=== PATIENT | female | born 1940 | race Caucasian/White ===

== ENCOUNTER 2018-04-16 10:38 | Inpatient (IN) ==
[2018-04-16] MEDS ORDERED: CeFAZolin Syr 2,000MG/20 ML 2,000 MG/20 ML SYRINGE IVPB ONE (11:02)
[2018-04-16] MEDS ORDERED: Ethanol\\Acetic Acid\\Na Ace\\Ben 1,000 ML IRRIG.SOLN IR ONE (11:08)
--- NOTE | 2018-04-16 11:11 | History & Physical Report ---
Date of Encounter: 04/16/18 Time of Encounter: 11:11 24 Hour HP Update - Instructions Instructions: If the History and Physical is less than 30 days old and was completed prior to A.M. admission and or procedure and has NOT been updated on calendar day of procedure please complete this update prior to performing procedure. - Update Patient reports changes in Medical Condition: No Changes in examination, assessment, or condition: No Changes in Medication: No Preop tests/diagnostics Reviewed: Yes Surgery Remains Indicated: Yes Consent for Planned Operative Procedure(s) Verified: Yes - Pre-Operative Checklist Preoperative Checklist Indicated: No Prophylactic Antibiotic Ordered: Yes Is VTE Prophylaxis Indicated?: Yes
[2018-04-16] MEDS ORDERED: Ringers Solution, Lactated 1,000 ML IVC SCH (11:15)
--- NOTE | 2018-04-16 11:52 | Anesthesia Evaluation PreOp ---
Date of Encounter: 04/16/18 Time of Encounter: 11:50 - Past History Planned Operation: L total hip arthroplasty robotic Cardiac History: HTN, Hyperlipidemia, Cardiac Surgery (s/p CABG 2000), Other ( mitral valve prolapse) Pulmonary History: Denies Any Significant HX GEOSPATIAL SYSTEMS INTEGRATOR History: Denies Any Significant HX Other Medical History: Denies Any Significant HX Anesthesia History: No Prior Anesthetic Complications, Past Anesthesia (bladder , R hip) Alcohol Use: none Drug use: none Medications and Allergies Aspirin [Adult Aspirin] 81 mg PO DAILY 06/15/15 [History] Lisinopril [Zestril] 20 mg PO DAILY 06/15/15 [History] Loratadine [Claritin] 10 mg PO DAILY #30 tablet 06/15/15 [Rx] Ranitidine HCl [Heartburn Relief] 150 mg PO DAILY 06/15/15 [History] Aspirin Enteric Coated [Aspirin EC] 162 mg PO BID #20 tablet. 04/16/18 [Rx] Lutein 6 mg PO DAILY 04/16/18 [History] OxyCODONE Immed Rel [Roxicodone 5 MG] 5 mg PO Q4HR PRN 5 Days #20 tablet [Rx] Simvastatin [Zocor] 40 mg PO HS 04/16/18 [History] amLODIPine [Norvasc] 5 mg PO DAILY 04/16/18 [History] 3 Allergy/AdvReac Type Severity Reaction Status Date / Time Latex, Natural Rubber Allergy Hives Verified 06/15/15 19:37 Sulfa (Sulfonamide Allergy Hives Verified 06/15/15 19:37 Antibiotics) - Meds/Allergy Pre-op Review Medications Reviewed: Yes Allergies Reviewed: Yes Beta Blockers on Current Med List: Yes If Beta Blockers taken, Date/Time (Last Dose taken): 04/15/18 Anesthesia Results - Labs Laboratory Tests 04/13/18 04/13/18 04/13/18 13:38 13:38 13:38 WBC 7.8 Hgb 14.1 Hct 40.4 Plt Count 268 PT 11.4 INR 1.0 Sodium 133 L Potassium 3.9 Chloride 96 L Carbon Dioxide 26 BUN 20 Creatinine 0.83 Glucose 96 - Imaging EKG: report reviewed (SR with first degree AV block) Anesthesia Exam O2 Sat Height 1.65 m Height 1.65 m Height 1.65 m Height 1.65 m Weight 65.771 kg Weight 65.771 kg Weight 65.771 kg Weight 64.864 kg O2 Sat by Pulse Oximetry 98 Vital Signs Temp Pulse Resp BP Pulse Ox 98.4 F 68 18 133/77 98 04/16/18 11:13 04/16/18 11:13 04/16/18 11:13 04/16/18 11:13 04/16/18 11:13 Height: 65" Weight: 145lbs NPO (# of Hours): >8 Pain Scale: 0 Pain Scale Used: Numeric (1 - 10) - HEENT Pupil (Motor): Pupils equal, EOMI Mallampati: II Oral Opening: Greater than 3 - GEOSPATIAL SYSTEMS INTEGRATOR LOC: Oriented GEOSPATIAL SYSTEMS INTEGRATOR Motor: Normal RUE, Normal LUE, Normal RLE, Normal LLE, Normal Face GEOSPATIAL SYSTEMS INTEGRATOR Sensory: Normal: RUE, LUE, RLE, LLE, Face - Cardiac Rhythm: Regular - Pulmonary Breath Sounds: bilateral Clear Respiratory Effort: Symmetrical Anesthesia Assess/Plan ASA Score: 3 (CAD s/p CABG, HTN) Modified [place] Scale for Level of Consciousness: Cooperative, oriented, and tranquil Anesthetic Plan: General (Plan B), Regional (spinal with duramorph), MAC Monitoring Plan: Standard Monitors Recovery Plan: PACU
[2018-04-16] MEDS ORDERED: Lidocaine -MPF 2% 5 ML VIAL ONE (12:13)
--- NOTE | 2018-04-16 13:17 | Anesthesia Procedures ---
Date of Encounter: 04/16/18 Time of Encounter: 13:05 Procedures: Anesthesia - Epidural/Spinal Patient ID/Chart reviewed: Yes Patient examined: Yes Consent Obtained: Yes Supplemental Oxygen: Nasal Cannula Supplemental Oxygen Rate (L/min): 2 Sedation: Versed (mg): 1 Sedation: Fentanyl (mcg): 50 Site Prep: Aseptic Technique, Sterile prep and drape, Povidone-Iodine 1% Patient position: upright Local Anesthetic: Lidocaine 1% Amount of Local Anesthetic used: 3 Interspace Used: L3-L4 Blood: No CSF: Yes Paresthesia: No Spinal Needle Gauge: 25 Spinal Dose: 3ml 0.5% bupi and 0.2mf pf morphine Procedure: r/b/a discussed, consent obtained, sitting position, sterile prep and drape, 3ml 1% lido infiltrated at L3-4, 2g introducer, 25g talia, csf clear, injected 3ml 0.5% bupi with 0.2mgPF duramorph intrathecally. Pt tolerated procedure. - Nerve Block Procedure Date: 04/16/18 Time: 13:05 Allergies/Adv Reactions: Allergies Allergy/AdvReac Type Severity Reaction Status Date / Time Latex, Natural Rubber Allergy Hives Verified 06/15/15 19:37 Sulfa (Sulfonamide Allergy Hives Verified 06/15/15 19:37 Antibiotics) Surgical Procedure: L hip arthroplasty
[2018-04-16] MEDS ORDERED: *HR* Midazolam HCl 2 MG/2 ML VIAL ONE (13:58)
[2018-04-16] MEDS ORDERED: EPHEDrine 50 MG/ML VIAL ONE (13:58)
[2018-04-16] MEDS ORDERED: *HR* FentaNYL (PF) 100 MCG/2 ML VIAL ONE (13:58)
[2018-04-16] MEDS ORDERED: *HR* Propofol 200 MG/20 ML VIAL IVP ONE ×2 (13:58)
[2018-04-16] MEDS ORDERED: *HR* OxyCODONE Immed Rel 5 MG TABLET PO PRN (14:59)
[2018-04-16] MEDS ORDERED: *HR* HYDROmorphone 2 MG TABLET PO PRN (14:59)
[2018-04-16] MEDS ORDERED: Ondansetron 4 MG/2 ML VIAL IVP PRN (14:59)
--- NOTE | 2018-04-16 15:18 | Anesthesia Evaluation Post Op ---
Date of Encounter: 04/16/18 Time of Encounter: 15:17 - Vital Signs Vital Signs: Vital Signs/O2 Sat, Most Current Temp Pulse Resp BP Pulse Ox 97.7 F 76 13 110/55 98 04/16/18 14:53 04/16/18 15:03 04/16/18 15:03 04/16/18 15:03 04/16/18 15:03 - Lungs Lungs: Clear Ascult./Percussion - Airway Airway: Non-obstructed - Cardiovascular Regular Rate - Mental Status Mental Status: Alert & Oriented, Answers Appropriately - Pain Pain Scale: 0 Pain Scale used: Numeric (1 - 10) - Nausea Vomiting Nausea Vomiting: Not Present - Hydration Hydration: Ice chips, Has not voided - Discharge PostOp Status: Transfer Patient to floor
--- NOTE | 2018-04-16 15:31 | Orthopedic Operative Note ---
Date of procedure: 04/16/18 Pre-op diagnosis: Left arthritis hip Post-op diagnosis: same Procedure: Procedure: Left Total Hip Replacment robotic-assisted Estimated blood loss: 200 cc Hardware: Metal and polyethylene replacement. Dawit DM Cup: 52 cup Femoral size 8 stem Head: 8 head with Vale Procedural Notes: Grade 4 arthritic changes femoral head acetabular socket, procedure performed with robotic assistance. 4 mm shorter operative versus nonoperative side as measured by preoperative CT scan Operative procedure: The patient was brought to the operating room and placed on the operating room table. After general anesthesia was administered the patient was placed in the lateral decubitus position with the operative leg up. All pressure points were padded appropriately and the head was stabilized in the neutral position. The operative extremity was prepped and draped in the sterile surgical fashion patient received IV antibiotic prior to skin incision. 3 Steinmann pins were placed in the iliac crest 3 cm proximal to the anterior superior iliac spine this was for the robotic-assisted sensor. This was done through a small 2 cm incision. A standard posterior approach is made to the operative hip, the incision was made through the skin and subcutaneous tissue hemostasis was obtained with Bovie cautery. Using careful sharp dissection the fascia was identified and incised exposing the external rotators. The femoral checkpoint was placed leg length was measured at this time utilizing robotic assistance. The external rotators were released off the greater trochanter and tagged with # 2 FiberWire suture. The capsule was T'd open and the hip was brought into internal rotation. Patient noted to have grade 4 arthritic changes femoral head. The femoral neck cut was made at the appropriate level roughly 16 mm proximal to the lesser trochanter aced on preoperative templating. An anterior capsulotomy was performed for the anterior retractor. Soft tissues removed from the acetabulum. Patient noted to have grade 4 arthritic changes acetabulum. The acetabulum checkpoint was placed confirmed. The acetabulum was then mapped with robotic assistance. Based on the preoperative plan the acetabulum was reamed in one step with a 51 reamer. The 52 acetabulum was impacted with robotic assistance and 40 degrees of abduction and 20 degrees of anteversion. The hip was brought back in to internal rotation and prepared with the drink box mechanic followed by the canal finder followed by the reaming process to a size 7/ 8 broaching process in 20 degrees anteversion. It was broached up to the appropriate size 8. Trial reduction revealed leg lengths close to normal. The femoral implant was impacted in place in 20 degrees of anteversion. Trial reduction found the hip to be stable with 8 head and Vale. The trials were removed and the real implants were impacted in place. The hip was reduced, patient had robotic confirmed leg length of 5mm longer than the contralateral side. The hip had excellent stability with forward flexion to 90 degrees adduction of 30 degrees and internal rotation of 60 degrees. The hip had no shuck. The hips after 2 minutes with a antibacterial solution. It was irrigated out with 2 L of pulse irrigation. The checkpoints were removed, Steinmann pins were removed. The deep tissue was irrigated and closed deep with #1 PDS suture superficially with 0 PDS suture and skin was closed with Dermabond and zip tie. The patient was placed in a sterile dressing and abduction pillow. The patient was extubated and transferred to the recovery room in stable condition. Anesthesia: spinal Surgeon: Mustapha Olivares Was there an legal executive assistant present: No Estimated blood loss (cc): 200 Condition: stable Disposition: PACU
--- NOTE | 2018-04-16 15:39 | Discharge Summary ---
Orders not resulted at time of discharge: Pending orders 04/16/18 10:42 Left Hip [XR hip complete LT] [XR] Routine Hemoglobin and Hematocrit [HEME] Stat 04/16/18 14:40 Surgical Pathology [PTH] Routine Date of Encounter: 04/19/18 Time of Encounter: 06:45 - Discharge Diagnosis (1) Arthritis of left hip Priority: Primary Status: Chronic (2) Status post total hip replacement, left Priority: Primary Status: Acute (3) Hypertension Priority: Secondary Status: Chronic Qualifiers: Hypertension type: unspecified Qualified Code(s): I10 - Essential (primary ) hypertension (4) Hyperlipidemia Priority: Secondary Status: Chronic Qualifiers: Hyperlipidemia type: unspecified Qualified Code(s): E78.5 - Hyperlipidemia , unspecified (5) Coronary artery disease Priority: Secondary Status: Chronic Qualifiers: Coronary Disease-Associated Artery/Lesion type: [place] artery [place] vs. transplanted heart: [place] heart Associated angina: angina presence unspecified Qualified Code(s): I25.10 - Atherosclerotic heart disease of [place] coronary artery without angina pectoris (6) Status post coronary artery bypass graft Priority: Secondary Status: Chronic (7) Mitral valve prolapse Priority: Secondary Status: Chronic - Hospital Course Hospital course: Ms. Tamayo is a 77 year old female Status post left total hip replacement Patient with a history of acute blood loss anemia received 2 units prior to discharge, They received antibiotics and physical therapy and were discharged in stable condition. There will follow-up in the office in 2 weeks. - Time Spent with Patient Total time spent providing and/or coordinating discharge services: - Discharge Medications Home Medications: Aspirin [Adult Aspirin] 81 mg PO DAILY 06/15/15 [History] Lisinopril [Zestril] 20 mg PO DAILY 06/15/15 [History] Ranitidine HCl [Heartburn Relief] 150 mg PO DAILY 06/15/15 [History] Aspirin Enteric Coated [Aspirin EC] 162 mg PO BID #20 tablet. 04/16/18 [Rx] Lutein 6 mg PO DAILY 04/16/18 [History] OxyCODONE Immed Rel [Roxicodone 5 MG] 5 mg PO Q4HR PRN 5 Days #20 tablet [Rx] Simvastatin [Zocor] 40 mg PO HS 04/16/18 [History] amLODIPine [Norvasc] 5 mg PO DAILY 04/16/18 [History] Cholecalciferol (D-3) [Vitamin D] 5,000 unit PO FR 04/17/18 [History] Loratadine [Allergy Relief] 10 mg PO DAILY 04/17/18 [History] Metoprolol Succinate [Toprol Xl] 12.5 mg PO DAILY 04/17/18 [History] Naproxen Sodium [Aleve] 220 mg PO Q12H PRN 04/17/18 [History] [place]-3/Dha/Epa/Fish Oil [Fish Oil 1,000 mg Softgel] 3 cap PO DAILY 04/17/18 [ History] Triamcinolone Acetonide [Nasacort] 1 - 2 spr NS DAILY PRN 04/17/18 [History] Allergies/Adverse Reactions: 3 Allergy/AdvReac Type Severity Reaction Status Date / Time Latex, Natural Rubber Allergy Hives Verified 04/17/18 13:11 Sulfa (Sulfonamide Allergy Hives Verified 04/17/18 13:11 Antibiotics) Primary care physician: Gabrielle Miller MD - Patient Status Disposition: Home Health Service Condition: Good Functional capacity at discharge: uses cane/walker Overall status at discharge: patient is progressing back to baseline - Discharge Instructions Follow Up With: Gabrielle Miller MD [Primary Care Provider] -
[2018-04-16] MEDS ORDERED: Sennosides 8.6 MG TABLET PO PRN (15:50)
[2018-04-16] MEDS ORDERED: Temazepam 15 MG CAPSULE PO PRN (15:50)
[2018-04-16] MEDS ORDERED: *HR* OxyCODONE/APAP 5/325 TABLET PO PRN (15:50)
[2018-04-16] MEDS ORDERED: traMADol 50 MG TABLET PO PRN (15:50)
[2018-04-16] MEDS ORDERED: Naloxone 0.4 MG/ML INJ IVP PRN (15:50)
[2018-04-16] MEDS ORDERED: MOM Conc 10 ML UD.LIQ PO PRN (15:50)
[2018-04-16 15:56] LABS: Hematocrit 34.4 % (35.3-44.9)
[2018-04-16 16:04] LABS: Hemoglobin 12.4 g/dL (11.5-15.4)
--- NOTE | 2018-04-16 16:37 | Physician Discharge Referral ---
Home Health/Hosp Referral Info Transfer to: Home Health Attending Provider: Dr. Mustapha Olivares - Diagnosis (1) Arthritis of left hip Priority: Primary Status: Chronic (2) Status post total hip replacement, left Priority: Primary Status: Acute (3) Hypertension Priority: Secondary Status: Chronic (4) Hyperlipidemia Priority: Secondary Status: Chronic (5) Coronary artery disease Priority: Secondary Status: Chronic (6) Status post coronary artery bypass graft Priority: Secondary Status: Chronic (7) Mitral valve prolapse Priority: Secondary Status: Chronic - Respiratory Orders Smoking Cessation: Smoking cessation has been advised. For more information, call the [place] Tobacco Quit Line at 6-523-KHVI-NOW. - Dressing/Wound Care Site: left hip Type of Dressing/Treatments w/Frequency: Opsite placed. Keep dressing intact until first follow up appointment. If greater than 50% saturated, notify office, remove dressing and place appropriate dressing back in place. Leave Zipline intact. Opsite dressing is water resistant, not water-proof. OK to shower, but do not get dressing wet. - Diet/Nutrition Diet/Nutrition Orders: Regular - Activity Activity Orders: Up ad aston, Ambulate, Chair, Walker Activity: List: Total Hip replacement Precautions Apply cold therapy 3-6x/day for 20 minutes at a time. Encourage ambulation throughout the day and incentive spirometer 10x/hour. Elevate affected extremity as tolerated. Brace: Wear hip abduction pillow when laying/sleeping - Services Needed Following services are medically necessary services: Nursing, Home Health Aide, Physical Therapy, Occupational Therapy - Transfer Medications Home Medications: Aspirin [Adult Aspirin] 81 mg PO DAILY 06/15/15 [History] Lisinopril [Zestril] 20 mg PO DAILY 06/15/15 [History] Loratadine [Claritin] 10 mg PO DAILY #30 tablet 06/15/15 [Rx] Ranitidine HCl [Heartburn Relief] 150 mg PO DAILY 06/15/15 [History] Aspirin Enteric Coated [Aspirin EC] 162 mg PO BID #20 tablet. 04/16/18 [Rx] Lutein 6 mg PO DAILY 04/16/18 [History] OxyCODONE Immed Rel [Roxicodone 5 MG] 5 mg PO Q4HR PRN 5 Days #20 tablet [Rx] Simvastatin [Zocor] 40 mg PO HS 04/16/18 [History] amLODIPine [Norvasc] 5 mg PO DAILY 04/16/18 [History] Allergies/Adverse Reactions: 3 Allergy/AdvReac Type Severity Reaction Status Date / Time Latex, Natural Rubber Allergy Hives Verified 06/15/15 19:37 Sulfa (Sulfonamide Allergy Hives Verified 06/15/15 19:37 Antibiotics) Certification: Further, I certify that my clinical findings support that this patient is homebound (i.e. absences from home require considerable and taxing effort and are for medical reasons or oriental orthodox services or infrequently or short duration when for other reasons) because: Homebound Reason: Post-surgery restriction and or conditions limit ability to leave home Attestation: My signature below is to certify that this patient is under my care and that I, or nurse practitioner, or a physician web marketing assistant working with me, has a face-to- face encounter with this patient.
[2018-04-16] MEDS: Ringers Solution, Lactated 1,000 ML IVC SCH (16:45)
[2018-04-16] MEDS ORDERED: *HR* Enoxaparin 30 MG/0.3 ML SYRINGE SQ SCH (18:00)
[2018-04-16] MEDS: Ascorbic Acid 500 MG TABLET PO SCH (19:14)
[2018-04-16] MEDS: Ondansetron 4 MG/2 ML VIAL IVP PRN (19:15)
[2018-04-16] MEDS: *HR* Enoxaparin 30 MG/0.3 ML SYRINGE SQ SCH (19:15)
[2018-04-16] MEDS: *HR* OxyCODONE Immed Rel 5 MG TABLET PO PRN (21:02)
[2018-04-17] MEDS: *HR* OxyCODONE Immed Rel 5 MG TABLET PO PRN ×5 (02:09→21:41)
[2018-04-17 02:26] LABS: Hematocrit 30.9 % (35.3-44.9)
[2018-04-17 02:43] LABS: BUN/Creatinine Ratio 21 (6-26); Blood Urea Nitrogen 15 mg/dL (8-23); Calcium 8.6 mg/dL (8.6-10.3); Carbon Dioxide 24 mEq/L (23-29); Chloride 102 mEq/L (98-107); Glucose 143 mg/dL (70-105); Osmolality,Calculated 277 (280-300); Potassium 4.3 mEq/L (3.5-5.1); Sodium 132 mEq/L (136-145); eGFR For African Americans > 60 (> 60); eGFR For Non-African Americans > 60 (> 60)
[2018-04-17] MEDS: *HR* Enoxaparin 30 MG/0.3 ML SYRINGE SQ SCH ×2 (05:19→17:03)
[2018-04-17] MEDS: Aspirin Enteric Coated 81 MG Tablet PO SCH (08:29)
[2018-04-17] MEDS: Famotidine 20 MG TABLET PO SCH (08:29)
[2018-04-17] MEDS: Loratadine 10 MG TABLET PO SCH (08:30)
[2018-04-17] MEDS: Ascorbic Acid 500 MG TABLET PO SCH ×2 (08:30→17:03)
[2018-04-17] MEDS: Multivit/Ca/Min/Fe/FA 1 TAB TABLET PO SCH (08:30)
[2018-04-17] MEDS: Lisinopril 20 MG TABLET PO SCH (08:48)
[2018-04-17] MEDS: amLODIPine 5 MG TABLET PO SCH (08:48)
--- NOTE | 2018-04-17 15:43 | Orthopedics Progress Note ---
Date of Encounter: 04/17/18 Time of Encounter: 15:41 Subjective Principal diagnosis: Status post left total hip arthroplasty Interval history: Patient complaining of pain She had 10 mg of oxycodone around 1 PM Left hip dressings are clean dry intact Bilateral calves are soft and nontender Grossly varus intact distally A/ postop day #1, stable with pain P/ continue OT/PT Continue DVT prophylaxis Pain control Home therapy referral made Objective Vital signs: Vital Signs Temp Pulse Resp BP Pulse Ox 04/17/18 10:22 98.4 F 93 16 101/54 98 04/17/18 06:42 98.2 F 87 16 98/57 96 04/17/18 03:53 98.0 F 84 16 94/60 94 04/16/18 23:19 98.5 F 96 16 95/64 96 04/16/18 19:20 97.7 F 87 14 109/64 100 04/16/18 18:29 98.8 F 86 16 100/59 96 04/16/18 18:17 97.9 F 86 16 96/63 96 04/16/18 17:42 97.8 F 83 16 97/56 95 Intake and Output 04/16/18 04/17/18 04/17/18 23:59 07:59 15:59 Intake Total 100 / 100 400 / 400 400 / 400 Output Total 350 / 350 Balance 100 / 100 400 / 400 50 / 50 Intake: IV Fluids 100 / 100 Ancef 2,000 MG In 0.9 % Sodium 100 / 100 Chloride 100 ML @ 200 mls/hr IVPB Q8H [facility] Rx#:[id number] Oral 400 / 400 400 / 400 Output: Urine 350 / 350 Other: Meal Breakfast Percent of Meal Consumed 60% # Voids 1 1 - Labs CBC & BMP: 04/17/18 00:54 04/17/18 00:54 Labs: Abnormal lab results Hgb 11.0 g/dL (11.5-15.4) L 04/17/18 00:54 Hct 30.9 % (35.3-44.9) L 04/17/18 00:54 Sodium 132 mEq/L (136-145) L 04/17/18 00:54 Glucose 143 mg/dL (70-105) H 04/17/18 00:54 Calculated Osmolality 277 (280-300) L 04/17/18 00:54 - VTE Documentation of Mechanical Device: Venous foot pump, device Consult Discharge Plan - Plan Referrals: Gabrielle Miller MD [Primary Care Provider] -
[2018-04-17] MEDS: Ringers Solution, Lactated 1,000 ML IVC SCH ×2 (19:20→19:21)
[2018-04-17] MEDS: Ondansetron 4 MG/2 ML VIAL IVP PRN (21:10)
[2018-04-18 01:04] LABS: Hematocrit 24.5 % (35.3-44.9)
[2018-04-18 01:06] LABS: Hemoglobin 8.8 g/dL (11.5-15.4)
[2018-04-18 01:24] LABS: BUN/Creatinine Ratio 23 (6-26); Blood Urea Nitrogen 19 mg/dL (8-23); Calcium 8.4 mg/dL (8.6-10.3); Carbon Dioxide 22 mEq/L (23-29); Chloride 93 mEq/L (98-107); Glucose 139 mg/dL (70-105); Osmolality,Calculated 259 (280-300); Potassium 4.8 mEq/L (3.5-5.1); Sodium 122 mEq/L (136-145); eGFR For African Americans > 60 (> 60); eGFR For Non-African Americans > 60 (> 60)
[2018-04-18] MEDS: *HR* OxyCODONE Immed Rel 5 MG TABLET PO PRN ×3 (03:02→19:26)
[2018-04-18] MEDS: *HR* Enoxaparin 30 MG/0.3 ML SYRINGE SQ SCH ×2 (05:54→17:00)
[2018-04-18] MEDS: Ringers Solution, Lactated 1,000 ML IVC SCH (07:13)
[2018-04-18] MEDS ORDERED: Furosemide 20 MG/2 ML VIAL IVP ONE (07:19)
[2018-04-18] MEDS ORDERED: 0.9 % Sodium Chloride 250 ML IVC SCH (07:30)
[2018-04-18] MEDS: Famotidine 20 MG TABLET PO SCH (07:38)
[2018-04-18] MEDS: Aspirin Enteric Coated 81 MG Tablet PO SCH (07:38)
[2018-04-18] MEDS: Multivit/Ca/Min/Fe/FA 1 TAB TABLET PO SCH (07:38)
[2018-04-18] MEDS: Ascorbic Acid 500 MG TABLET PO SCH ×2 (07:39→17:00)
[2018-04-18] MEDS: amLODIPine 5 MG TABLET PO SCH (07:39)
[2018-04-18] MEDS: Lisinopril 20 MG TABLET PO SCH (07:39)
[2018-04-18] MEDS: Loratadine 10 MG TABLET PO SCH (07:39)
[2018-04-18] MEDS: Ondansetron 4 MG/2 ML VIAL IVP PRN ×2 (09:11→19:26)
--- NOTE | 2018-04-18 15:15 | Orthopedics Progress Note ---
Date of Encounter: 04/18/18 Time of Encounter: 15:13 Subjective Principal diagnosis: Status post left total hip arthroplasty Interval history: Patient complaining of pain Patient states she threw up after Oxycodone this morning. She received one unit of packed red blood cells this am Left hip dressings are clean dry intact Bilateral calves are soft and nontender Grossly varus intact distally A/ postop day #2, stable with pain P/ continue OT/PT Continue DVT prophylaxis Pain control - patient also has Ultram as well as an alternative Check H&H tomorrow Home therapy referral made Objective Vital signs: Vital Signs Temp Pulse Resp BP Pulse Ox 04/18/18 13:02 98.1 F 93 15 109/58 98 04/18/18 10:51 98.1 F 83 14 95/47 96 04/18/18 10:36 98.1 F 88 14 97/61 98 04/18/18 07:53 94 04/18/18 06:54 99.2 F 98 20 108/50 94 04/18/18 02:42 98.8 F 91 16 101/57 94 04/17/18 22:36 98.4 F 88 16 103/61 93 04/17/18 17:42 98.5 F 101 16 100/62 98 Intake and Output 04/17/18 04/18/18 04/18/18 23:59 07:59 15:59 Intake Total 2800 / 2800 0 / 0 994 / 994 Output Total 200 / 200 300 / 300 300 / 300 Balance 2600 / 2600 -300 / -300 694 / 694 Intake: IV Fluids 900 / 900 25 / 25 0.9 % Sodium Chloride 250 ML @ 25 / 25 25 mls/hr IVC .Q10H [facility] Rx#: [id number] Lactated Ringers 1,000 ML @ 75 900 / 900 mls/hr IVC .[id number] [facility] Rx#: [id number] Oral 1000 / 1000 0 / 0 690 / 690 Blood Product 279 / 279 Rbcs Leuko Poor As-1 Unit 279 / 279 [id number] Free Water 900 / 900 Output: Urine 200 / 200 300 / 300 300 / 300 Other: Meal Dinner Breakfast Percent of Meal Consumed 25% 40% # Voids 1 1 - Labs CBC & BMP: 04/18/18 00:27 04/18/18 00:27 Labs: Abnormal lab results Hgb 8.8 g/dL (11.5-15.4) L D 04/18/18 00:27 Hct 24.5 % (35.3-44.9) L 04/18/18 00:27 Sodium 122 mEq/L (136-145) L D 04/18/18 00:27 Chloride 93 mEq/L (98-107) L 04/18/18 00:27 Carbon Dioxide 22 mEq/L (23-29) L 04/18/18 00:27 Glucose 139 mg/dL (70-105) H 04/18/18 00:27 Calculated Osmolality 259 (280-300) L 04/18/18 00:27 Calcium 8.4 mg/dL (8.6-10.3) L 04/18/18 00:27 - VTE Documentation of Mechanical Device: Intermittent pneumatic compression device Consult Discharge Plan - Plan Referrals: Gabrielle Miller MD [Primary Care Provider] -
[2018-04-19 00:33] LABS: Hematocrit 22.4 % (35.3-44.9); Hemoglobin 8.3 g/dL (11.5-15.4)
[2018-04-19] MEDS: *HR* OxyCODONE Immed Rel 5 MG TABLET PO PRN ×4 (02:44→21:29)
[2018-04-19] MEDS: *HR* Enoxaparin 30 MG/0.3 ML SYRINGE SQ SCH ×2 (06:07→17:19)
--- NOTE | 2018-04-19 06:46 | Orthopedics Progress Note ---
Date of Encounter: 04/19/18 Time of Encounter: 06:46 - Assessment and Plan (1) Arthritis of left hip Current Visit: Yes Status: Chronic (2) Status post total hip replacement, left Current Visit: Yes Status: Acute (3) Hypertension Current Visit: Yes Status: Chronic Qualifiers: Hypertension type: unspecified Qualified Code(s): I10 - Essential (primary ) hypertension (4) Hyperlipidemia Current Visit: Yes Status: Chronic Qualifiers: Hyperlipidemia type: unspecified Qualified Code(s): E78.5 - Hyperlipidemia , unspecified (5) Coronary artery disease Current Visit: Yes Status: Chronic Qualifiers: Coronary Disease-Associated Artery/Lesion type: [place] artery [place] vs. transplanted heart: [place] heart Associated angina: angina presence unspecified Qualified Code(s): I25.10 - Atherosclerotic heart disease of [place] coronary artery without angina pectoris (6) Status post coronary artery bypass graft Current Visit: Yes Status: Chronic (7) Mitral valve prolapse Current Visit: Yes Status: Chronic Subjective Principal diagnosis: Status post left total hip arthroplasty Interval history: Patient was seen this morning doing well without complaints. Afebrile vital signs stable. Operative extremity: Neurovascularly intact Dressing clean dry and intact Calves nontender Assessment and plan: Continue with postoperative care Hemoglobin 8.3 transfuse 1 more unit been discharged today Objective Vital signs: Vital Signs Temp Pulse Resp BP Pulse Ox 04/19/18 06:28 98.5 F 92 18 107/56 96 04/19/18 04:23 98.9 F 92 14 98/60 97 04/18/18 23:08 98.7 F 90 16 103/62 96 04/18/18 18:34 98.9 F 98 18 116/50 96 04/18/18 15:56 97.9 F 94 17 103/65 99 04/18/18 13:02 98.1 F 93 15 109/58 98 04/18/18 10:51 98.1 F 83 14 95/47 96 04/18/18 10:36 98.1 F 88 14 97/61 98 04/18/18 07:53 94 04/18/18 06:54 99.2 F 98 20 108/50 94 Intake and Output 04/18/18 04/18/18 04/19/18 15:59 23:59 07:59 Intake Total 994 / 994 760 / 760 100 / 100 Output Total 600 / 600 0 / 0 200 / 200 Balance 394 / 394 760 / 760 -100 / -100 Intake: IV Fluids 25 / 25 0.9 % Sodium Chloride 250 ML @ 25 / 25 25 mls/hr IVC .Q10H [facility] Rx#: [id number] Oral 690 / 690 760 / 760 100 / 100 Blood Product 279 / 279 Rbcs Leuko Poor As-1 Unit 279 / 279 [id number] Output: Urine 600 / 600 0 / 0 200 / 200 Other: Meal Breakfast Dinner Percent of Meal Consumed 40% 10% Weight 66.46 kg Patient Weight 04/19/18 23:59 Weight 66.46 kg - Labs CBC & BMP: 04/19/18 00:22 04/18/18 00:27 Labs: Abnormal lab results Hgb 8.3 g/dL (11.5-15.4) L 04/19/18 00:22 Hct 22.4 % (35.3-44.9) L 04/19/18 00:22 Sodium 122 mEq/L (136-145) L D 04/18/18 00:27 Chloride 93 mEq/L (98-107) L 04/18/18 00:27 Carbon Dioxide 22 mEq/L (23-29) L 04/18/18 00:27 Glucose 139 mg/dL (70-105) H 04/18/18 00:27 Calculated Osmolality 259 (280-300) L 04/18/18 00:27 Calcium 8.4 mg/dL (8.6-10.3) L 04/18/18 00:27 - VTE Documentation of Mechanical Device: Venous foot pump, device Consult Discharge Plan - Plan Referrals: Gabrielle Miller MD [Primary Care Provider] -
[2018-04-19] MEDS ORDERED: Furosemide 20 MG/2 ML VIAL IVP ONE (06:49)
[2018-04-19] MEDS ORDERED: 0.9 % Sodium Chloride 250 ML IVC SCH (07:00)
[2018-04-19] MEDS: Lisinopril 20 MG TABLET PO SCH (08:29)
[2018-04-19] MEDS: amLODIPine 5 MG TABLET PO SCH (08:29)
[2018-04-19] MEDS: Famotidine 20 MG TABLET PO SCH (08:48)
[2018-04-19] MEDS: Ascorbic Acid 500 MG TABLET PO SCH ×2 (08:48→17:18)
[2018-04-19] MEDS: Aspirin Enteric Coated 81 MG Tablet PO SCH (08:48)
[2018-04-19] MEDS: Multivit/Ca/Min/Fe/FA 1 TAB TABLET PO SCH (08:49)
[2018-04-19] MEDS: Loratadine 10 MG TABLET PO SCH (08:49)
[2018-04-19 10:59] LABS: BUN/Creatinine Ratio 27 (6-26); Blood Urea Nitrogen 21 mg/dL (8-23); Calcium 8.4 mg/dL (8.6-10.3); Carbon Dioxide 25 mEq/L (23-29); Chloride 90 mEq/L (98-107); Glucose 141 mg/dL (70-105); Osmolality,Calculated 255 (280-300); Potassium 4.1 mEq/L (3.5-5.1); Sodium 120 mEq/L (136-145); eGFR For African Americans > 60 (> 60); eGFR For Non-African Americans > 60 (> 60)
--- NOTE | 2018-04-19 12:38 | Event Note ---
Date of Encounter: 04/19/18 Time of Encounter: 12:00 PCR- POD# 3 L THR robot 04/16 [place] PCR - Patient seen at bedside. Patient resting comfortably in bed. Spouse at bedside. 1 unit PRBC transfusing during visit. Vitals, Labwork and Medications reviewed. Sodium 120 today - checking urine osmolality and sodium Pain control: Adequate Participating in PT. All questions and concerns addressed. Educated on use of incentive spirometer, ambulation, and hydration. Patient educated on post-operative restrictions and care. Addressed: Hyponatremia D/C plan: Home with home health after transfusion IF sodium corrects on repeat BMP
[2018-04-19] MEDS: Ondansetron 4 MG/2 ML VIAL IVP PRN (12:40)
--- NOTE | 2018-04-19 15:34 | Event Note ---
Date of Encounter: 04/19/18 Time of Encounter: 14:30 S/w patient and her two daughters re: hyponatremia. Discussed that we anticipate some correction with the unit of blood she got today however we are getting further labwork as well to verify no major issue needing to be addressed such as SIADH or other salt-wasting condition. Informed them we will need to make sure she has close follow up with PCP as well upon discharge to continue to monitor. They verbalized understanding and agreement with above stated plan.
[2018-04-19 17:45] LABS: BUN/Creatinine Ratio 28 (6-26); Blood Urea Nitrogen 19 mg/dL (8-23); Calcium 8.4 mg/dL (8.6-10.3); Carbon Dioxide 23 mEq/L (23-29); Chloride 91 mEq/L (98-107); Glucose 108 mg/dL (70-105); Osmolality,Calculated 257 (280-300); Potassium 4.8 mEq/L (3.5-5.1); Sodium 122 mEq/L (136-145); eGFR For African Americans > 60 (> 60); eGFR For Non-African Americans > 60 (> 60)
[2018-04-19 19:04] LABS: Thyroid Stimulating Hormone 1.949 mcIU/mL (0.340-5.600)
[2018-04-20 02:16] LABS: Basophils % 0.3 %; Eosinophils # 0.4 K/mcL (0.0-0.6); Eosinophils % 3.3 %; Hematocrit 23.5 % (35.3-44.9); Hemoglobin 8.6 g/dL (11.5-15.4); Immature Granulocytes % 2.1 % (0-4); Lymphocytes # 2.2 K/mcL (0.6-4.6); Lymphocytes % 19.2 %; Mean Corpuscular HGB Conc 36.6 g/dL (31.6-35.5); Mean Corpuscular Hemoglobin 32.7 pg (28.0-33.3); Mean Corpuscular Volume 89.4 fL (83.0-100.0); Mean Platelet Volume 9.6 fL (9.4-12.4); Monocytes # 1.2 K/mcL (0.0-1.3); Monocytes % 10.3 %; Neutrophils # 7.5 K/mcL (1.6-8.9); Nucleated Red Blood Cells 0.3 /100 WBC (0); Platelet Count 186 K/mcL (140-400); Red Blood Count 2.63 M/mcL (3.82-4.97); Red Cell Distribution Width 12.9 % (11.5-14.5); Segmented Neutrophils % 64.8 %
[2018-04-20 02:34] LABS: Alanine Aminotransferase 19 Units/L (7-52); Albumin 2.9 g/dL (3.5-5.7); Albumin/Globulin Ratio 1.4 (1.1-2.2); Alkaline Phosphatase 36 Units/L (34-104); Aspartate Amino Transferase 38 Units/L (13-39); BUN/Creatinine Ratio 32 (6-26); Bilirubin,Total 0.9 mg/dL (0.3-1.0); Blood Urea Nitrogen 21 mg/dL (8-23); Calcium 8.3 mg/dL (8.6-10.3); Carbon Dioxide 23 mEq/L (23-29); Chloride 91 mEq/L (98-107); Globulin 2.1 g/dL (2.4-3.5); Glucose 98 mg/dL (70-105); Osmolality,Calculated 255 (280-300); Potassium 4.4 mEq/L (3.5-5.1); Sodium 121 mEq/L (136-145); eGFR For African Americans > 60 (> 60); eGFR For Non-African Americans > 60 (> 60)
[2018-04-20] MEDS: *HR* Enoxaparin 30 MG/0.3 ML SYRINGE SQ SCH ×2 (05:16→17:38)
[2018-04-20] MEDS: *HR* OxyCODONE Immed Rel 5 MG TABLET PO PRN ×2 (05:17→17:42)
--- NOTE | 2018-04-20 06:21 | Orthopedics Progress Note ---
Date of Encounter: 04/20/18 Time of Encounter: 06:20 - Assessment and Plan (1) Arthritis of left hip Current Visit: Yes Status: Chronic (2) Status post total hip replacement, left Current Visit: Yes Status: Acute (3) Hypertension Current Visit: Yes Status: Chronic Qualifiers: Hypertension type: unspecified Qualified Code(s): I10 - Essential (primary ) hypertension (4) Hyperlipidemia Current Visit: Yes Status: Chronic Qualifiers: Hyperlipidemia type: unspecified Qualified Code(s): E78.5 - Hyperlipidemia , unspecified (5) Coronary artery disease Current Visit: Yes Status: Chronic Qualifiers: Coronary Disease-Associated Artery/Lesion type: [place] artery [place] vs. transplanted heart: [place] heart Associated angina: angina presence unspecified Qualified Code(s): I25.10 - Atherosclerotic heart disease of [place] coronary artery without angina pectoris (6) Status post coronary artery bypass graft Current Visit: Yes Status: Chronic (7) Mitral valve prolapse Current Visit: Yes Status: Chronic Subjective Principal diagnosis: Status post left total hip arthroplasty Interval history: Patient was seen this morning doing well without complaints. Afebrile vital signs stable. Operative extremity: Neurovascularly intact Dressing clean dry and intact Calves nontender Assessment and plan: Continue with postoperative care Hemoglobin 8.6 persistent hyponatremia being evaluated by medical team holding discharge Objective Vital signs: Vital Signs Temp Pulse Resp BP Pulse Ox 04/20/18 02:58 98.4 F 83 16 102/53 94 04/20/18 00:39 98.5 F 87 15 106/71 96 04/19/18 20:32 97.7 F 91 15 126/61 95 04/19/18 14:51 97.7 F 85 14 104/75 99 04/19/18 11:49 97.7 F 83 16 121/56 98 04/19/18 11:23 98.1 F 86 16 101/55 96 04/19/18 10:43 98.0 F 86 18 116/69 93 04/19/18 06:28 98.5 F 92 18 107/56 96 Intake and Output 04/19/18 04/19/18 04/20/18 15:59 23:59 07:59 Intake Total 522 / 522 100 / 100 50 / 50 Output Total 500 / 500 1800 / 1800 Balance 522 / 522 -400 / -400 -1750 / -1750 Intake: Oral 240 / 240 100 / 100 50 / 50 Blood Product 282 / 282 Rbcs Leuko Poor As-1 Unit 282 / 282 [id number] Output: Urine 500 / 500 1800 / 1800 Other: Meal Breakfast Percent of Meal Consumed 10% # Voids 2 3 Weight 66 kg - Labs CBC & BMP: 04/20/18 01:14 04/20/18 01:14 Labs: Abnormal lab results WBC 11.6 K/mcL (4.3-11.1) H 04/20/18 01:14 RBC 2.63 M/mcL (3.82-4.97) L 04/20/18 01:14 Hgb 8.6 g/dL (11.5-15.4) L 04/20/18 01:14 Hct 23.5 % (35.3-44.9) L 04/20/18 01:14 MCHC 36.6 g/dL (31.6-35.5) H 04/20/18 01:14 Nucleated RBCs/100 WBC 0.3 /100 WBC (0) H 04/20/18 01:14 Sodium 121 mEq/L (136-145) L 04/20/18 01:14 Chloride 91 mEq/L (98-107) L 04/20/18 01:14 BUN/Creatinine Ratio 32 (6-26) H 04/20/18 01:14 Calculated Osmolality 255 (280-300) L 04/20/18 01:14 Calcium 8.3 mg/dL (8.6-10.3) L 04/20/18 01:14 Serum Total Protein 5.0 g/dL (6.4-8.9) L 04/20/18 01:14 Albumin 2.9 g/dL (3.5-5.7) L 04/20/18 01:14 Globulin 2.1 g/dL (2.4-3.5) L 04/20/18 01:14 Urine Osmolality 249 mOsm/kg (300-1090) L 04/19/18 17:07 - VTE Documentation of Mechanical Device: Venous foot pump, device Consult Discharge Plan - Plan Referrals: Gabrielle Miller MD [Primary Care Provider] -
[2018-04-20] MEDS: Famotidine 20 MG TABLET PO SCH (09:36)
[2018-04-20] MEDS: Ascorbic Acid 500 MG TABLET PO SCH ×2 (09:36→17:38)
[2018-04-20] MEDS: Loratadine 10 MG TABLET PO SCH (09:36)
[2018-04-20] MEDS: amLODIPine 5 MG TABLET PO SCH (09:37)
[2018-04-20] MEDS: Multivit/Ca/Min/Fe/FA 1 TAB TABLET PO SCH (09:37)
[2018-04-20] MEDS: Aspirin Enteric Coated 81 MG Tablet PO SCH (09:37)
[2018-04-20] MEDS ORDERED: Tolvaptan 15 MG TABLET PO ONE (10:16)
--- NOTE | 2018-04-20 11:42 | Nephrology Consult Note ---
Date of Encounter: 04/20/18 Time of Encounter: 09:10 Assessment and Plan (1) Hyponatremia Current Visit: Yes Status: Acute S/p L total hip arthroplasty Euvolemic, hypochloremic hyponatremia P: Holding off on fluid restriction in setting of planned -vaptan administration Giving 15mg x1 dose Tolvaptan to help facilitate excretion of electrolyte-free water Ordering BID BMP, update to Urine sodium, Urine osm, Urine potassium for AM labs (2) Status post total hip replacement, left Current Visit: Yes Status: Acute (3) Hyperlipidemia Current Visit: Yes Status: Chronic On statin; chronic Qualifiers: Hyperlipidemia type: unspecified Qualified Code(s): E78.5 - Hyperlipidemia , unspecified (4) Hypertension Current Visit: Yes Status: Chronic Zestril; not currently on a thiazide (na+/cl- cotransporter inhibitor) chronic condition per primary Qualifiers: Hypertension type: unspecified Qualified Code(s): I10 - Essential (primary ) hypertension (5) Anemia Current Visit: Yes Status: Acute 12.4 13 down to 8.3 / s/p 1U pRBC transfusion hgb 8.6, no evidence of active bleed no hx renal disease 80-100 MCV Qualifiers: Anemia type: unspecified type Qualified Code(s): D64.9 - Anemia, unspecified History of Present Illness - Reason for Consult hyponatremia Requesting physician: Mustapha Oilvares - Chief Complaint Hyponatremia, s/p L hip arthroplasty - History of Present Illness 77F consulted for hyponatremia of 122, s/p L total hip arthroplasty. Past medical history significant for CAD s/p CABG, arthritis, HTN, HLD. Patient has received 1U pRBCs post-op for hgb 8.3 (12s baseline). She has received LRs at 75cc/hr for half a day. At the time of my evaluation patient denies seizures, concentration changes, or dysarthria. Pain is well controlled. Past Med Surg Social Fam HX - Past Medical History Medical history: coronary artery disease, hypertension, other Additional medical history: HEART PROBLEMS Psychiatric history: no psych history - Past Surgical History Surgical History: coronary bypass (CABG), other - Social History Smoking Status: Never smoker Smokeless Tobacco Status: No Alcohol use: none Drug use: none - Family History Mother Hx Family Neurologic Disorders: Yes (CVA) Medications and Allergies Aspirin [Adult Aspirin] 81 mg PO DAILY 06/15/15 [History] Lisinopril [Zestril] 20 mg PO DAILY 06/15/15 [History] Ranitidine HCl [Heartburn Relief] 150 mg PO DAILY 06/15/15 [History] Aspirin Enteric Coated [Aspirin EC] 162 mg PO BID #20 tablet. 04/16/18 [Rx] Lutein 6 mg PO DAILY 04/16/18 [History] OxyCODONE Immed Rel [Roxicodone 5 MG] 5 mg PO Q4HR PRN 5 Days #20 tablet [Rx] Simvastatin [Zocor] 40 mg PO HS 04/16/18 [History] amLODIPine [Norvasc] 5 mg PO DAILY 04/16/18 [History] Cholecalciferol (D-3) [Vitamin D] 5,000 unit PO FR 04/17/18 [History] Loratadine [Allergy Relief] 10 mg PO DAILY 04/17/18 [History] Metoprolol Succinate [Toprol Xl] 12.5 mg PO DAILY 04/17/18 [History] Naproxen Sodium [Aleve] 220 mg PO Q12H PRN 04/17/18 [History] [place]-3/Dha/Epa/Fish Oil [Fish Oil 1,000 mg Softgel] 3 cap PO DAILY 04/17/18 [ History] Triamcinolone Acetonide [Nasacort] 1 - 2 spr NS DAILY PRN 04/17/18 [History] 3 Allergy/AdvReac Type Severity Reaction Status Date / Time Latex, Natural Rubber Allergy Hives Verified 04/17/18 13:11 Sulfa (Sulfonamide Allergy Hives Verified 04/17/18 13:11 Antibiotics) Exam - Vital Signs Vital signs: Initial Vital Signs Temp Pulse Resp BP Pulse Ox 98.4 F 68 18 133/77 98 04/16/18 11:13 04/16/18 11:13 04/16/18 11:13 04/16/18 11:13 04/16/18 11:13 Vital Signs - Last 8 Hours Temp Pulse Resp BP Pulse Ox 04/20/18 07:40 98.4 F 82 16 132/76 94 Intake and Output 04/19/18 04/20/18 04/20/18 23:59 07:59 15:59 Intake Total 100 / 100 50 / 50 Output Total 500 / 500 1800 / 1800 Balance -400 / -400 -1750 / -1750 Intake: Oral 100 / 100 50 / 50 Output: Urine 500 / 500 1800 / 1800 Other: # Voids 3 Weight 66 kg - General Appearance General appearance: well-developed, well-nourished, appears started age EENT: mucous membranes moist Neck: supple Respiratory: clear Cardiology: no murmurs, no rub, no gallops, no edema, regular rate, regular rhythm, normal S1, normal S2 Integumentary: no rash, warm and dry Additional Comments: dressing intact/dry Neurologic: no focal deficit, alert and oriented x3 Musculoskeletal: no deformities, no erythema, no cyanosis, no clubbing Psychiatric: mood/affect appropriate, cooperative Results - Lab Results 04/20/18 01:14 04/20/18 01:14 Most recent lab results Calcium 8.3 mg/dL (8.6-10.3) L 04/20/18 01:14 Urine Sodium < 10.0 mEq/L 04/19/18 17:07 Consult Discharge Plan - Plan Referrals: Gabrielle Miller MD [Primary Care Provider] -
[2018-04-20 18:34] LABS: BUN/Creatinine Ratio 23 (6-26); Blood Urea Nitrogen 17 mg/dL (8-23); Calcium 8.8 mg/dL (8.6-10.3); Carbon Dioxide 25 mEq/L (23-29); Chloride 97 mEq/L (98-107); Glucose 137 mg/dL (70-105); Osmolality,Calculated 260 (280-300); Potassium 4.3 mEq/L (3.5-5.1); Sodium 123 mEq/L (136-145); eGFR For African Americans > 60 (> 60); eGFR For Non-African Americans > 60 (> 60)
--- NOTE | 2018-04-20 21:13 | Event Note ---
Date of Encounter: 04/20/18 Time of Encounter: 12:00 PCR- POD#4 s/p L THR robotic 04/16 Dr. Olivares PCR - Patient seen at bedside. daughter Lia Jiménez , patients spouse also at bedside Alert and oriented x 3 Labwork and medications reviewed. 04/20: H/H 8.6/23.5 - improved from 04/19 after 1 unit blood Hyponatremia persisting - first developed on 04/18 to 122. Decreased to 120 on 04/19. Improved to 122 then dropped again to 121 on 04/20. Nephrology consulted - they are further evaluating and treating. Vital signs reviewed. No calf tenderness. Neurovascularly intact b/l LE. Scant drainage to primary surgical incision - requested nursing to change dressing. Pain control: Adequate with Oxycodone Participating in PT. Educated on use of incentive spirometer, ambulation, and hydration. Patient educated on post-operative restrictions and care. Addressed: 04/20: Family concerns: hyponatremia cause and treatment- discussed nephrology consultation as was previously discussed with both daughters on 04/19 by this provider as a possibility if sodium did not correct with blood transfusion. Discussed patient's vital signs - family was under impression patient should be on continuous monitoring. Explained at present this was not necessary as patient has remained stable. Discussed labwork that was ordered on 04/19 with results as well as indication for ordering. Discussed that while we are very pleased with her hip recovery she has developed this unexpected medical complication that arose that makes it unsafe for her to go home until corrected which is leading to a longer than anticipated hospital stay. Patient and family verbalized all questions and concerns addressed and expressed understanding and thanks. Nurse clinical documentation manager and nurse navigator were present during this lengthy discussion. Nurse clinical documentation manager aware of family's concerns and will continue to monitor. D/C plan: Home with home health once sodium corrected.
[2018-04-21 01:37] LABS: BUN/Creatinine Ratio 24 (6-26); Blood Urea Nitrogen 16 mg/dL (8-23); Calcium 8.7 mg/dL (8.6-10.3); Carbon Dioxide 25 mEq/L (23-29); Chloride 96 mEq/L (98-107); Glucose 110 mg/dL (70-105); Osmolality,Calculated 270 (280-300); Potassium 4.1 mEq/L (3.5-5.1); Sodium 129 mEq/L (136-145); eGFR For African Americans > 60 (> 60); eGFR For Non-African Americans > 60 (> 60)
[2018-04-21] MEDS: *HR* OxyCODONE Immed Rel 5 MG TABLET PO PRN ×2 (01:58→08:34)
[2018-04-21] MEDS: *HR* Enoxaparin 30 MG/0.3 ML SYRINGE SQ SCH (05:23)
--- NOTE | 2018-04-21 06:53 | Orthopedics Progress Note ---
Date of Encounter: 04/21/18 Time of Encounter: 06:53 - Assessment and Plan (1) Arthritis of left hip Current Visit: Yes Status: Chronic (2) Status post total hip replacement, left Current Visit: Yes Status: Acute (3) Hypertension Current Visit: Yes Status: Chronic Qualifiers: Hypertension type: unspecified Qualified Code(s): I10 - Essential (primary ) hypertension (4) Hyperlipidemia Current Visit: Yes Status: Chronic Qualifiers: Hyperlipidemia type: unspecified Qualified Code(s): E78.5 - Hyperlipidemia , unspecified (5) Coronary artery disease Current Visit: Yes Status: Chronic Qualifiers: Coronary Disease-Associated Artery/Lesion type: [place] artery [place] vs. transplanted heart: [place] heart Associated angina: angina presence unspecified Qualified Code(s): I25.10 - Atherosclerotic heart disease of [place] coronary artery without angina pectoris (6) Status post coronary artery bypass graft Current Visit: Yes Status: Chronic (7) Mitral valve prolapse Current Visit: Yes Status: Chronic Subjective Principal diagnosis: Status post left total hip arthroplasty Interval history: Patient was seen this morning doing well without complaints. Afebrile vital signs stable. Operative extremity: Neurovascularly intact Dressing clean dry and intact Calves nontender Assessment and plan: Continue with postoperative care Sodium 129 plan for discharge today Objective Vital signs: Vital Signs Temp Pulse Resp BP Pulse Ox 04/21/18 00:40 98.5 F 88 15 109/64 98 04/20/18 18:55 98.2 F 98 15 102/58 98 04/20/18 15:59 98.5 F 88 16 118/56 95 04/20/18 12:30 98.8 F 98 16 133/68 96 04/20/18 07:40 98.4 F 82 16 132/76 94 Intake and Output 04/20/18 04/20/18 04/21/18 15:59 23:59 07:59 Intake Total 240 / 240 850 / 850 Output Total 800 / 800 2049 1000 / 1000 Balance -560 / -560 -1200 / -1200 -1000 / -1000 Intake: Oral 240 / 240 850 / 850 Output: Urine 800 / 800 2049 1000 / 1000 Other: Meal Breakfast Percent of Meal Consumed 10% # Voids 1 1 Weight 66.5 kg Patient Weight 04/21/18 23:59 Weight 66.5 kg - Labs CBC & BMP: 04/20/18 01:14 07/18/18 00:55 Labs: Abnormal lab results WBC 11.6 K/mcL (4.3-11.1) H 04/20/18 01:14 RBC 2.63 M/mcL (3.82-4.97) L 04/20/18 01:14 Hgb 8.6 g/dL (11.5-15.4) L 04/20/18 01:14 Hct 23.5 % (35.3-44.9) L 04/20/18 01:14 MCHC 36.6 g/dL (31.6-35.5) H 04/20/18 01:14 Nucleated RBCs/100 WBC 0.3 /100 WBC (0) H 04/20/18 01:14 Sodium 129 mEq/L (136-145) L 04/21/18 00:55 Chloride 96 mEq/L (98-107) L 04/21/18 00:55 Glucose 110 mg/dL (70-105) H 04/21/18 00:55 Calculated Osmolality 270 (280-300) L 04/21/18 00:55 Serum Total Protein 5.0 g/dL (6.4-8.9) L 04/20/18 01:14 Albumin 2.9 g/dL (3.5-5.7) L 04/20/18 01:14 Globulin 2.1 g/dL (2.4-3.5) L 04/20/18 01:14 Urine Osmolality 249 mOsm/kg (300-1090) L 04/19/18 17:07 - VTE Documentation of Mechanical Device: Venous foot pump, device Consult Discharge Plan - Plan Referrals: Gabrielle Miller MD [Primary Care Provider] -
[2018-04-21] MEDS: amLODIPine 5 MG TABLET PO SCH (08:33)
[2018-04-21] MEDS: Famotidine 20 MG TABLET PO SCH (08:33)
[2018-04-21] MEDS: Ascorbic Acid 500 MG TABLET PO SCH (08:33)
[2018-04-21] MEDS: Aspirin Enteric Coated 81 MG Tablet PO SCH (08:34)
[2018-04-21] MEDS: Multivit/Ca/Min/Fe/FA 1 TAB TABLET PO SCH (08:34)
[2018-04-21] MEDS: Loratadine 10 MG TABLET PO SCH (08:34)
--- NOTE | 2018-04-21 12:20 | Nephrology Progress Note ---
Date of Encounter: 04/21/18 Time of Encounter: 09:30 - Assessment and Plan (1) Hyponatremia Current Visit: Yes Status: Acute While sodium is still low at 129, it is adequately corrected for discharge; patient has been asymptomatic neurologically, recommend BMP 1 week, return to normal diet and fluid intake. Thank you for the consult. (2) Status post total hip replacement, left Current Visit: Yes Status: Acute pain controlled (3) Hyperlipidemia Current Visit: Yes Status: Chronic Statin, chronic Qualifiers: Hyperlipidemia type: unspecified Qualified Code(s): E78.5 - Hyperlipidemia , unspecified (4) Hypertension Current Visit: Yes Status: Chronic Zestril; not currently on a thiazide (na+/cl- cotransporter inhibitor) chronic condition per primary Qualifiers: Hypertension type: unspecified Qualified Code(s): I10 - Essential (primary ) hypertension (5) Anemia Current Visit: Yes Status: Acute 12.4 7/13 down to 8.3 7/16 s/p 1U pRBC transfusion hgb 8.6, no evidence of active bleed no hx renal disease 80-100 MCV Qualifiers: Anemia type: unspecified type Qualified Code(s): D64.9 - Anemia, unspecified Subjective Principal diagnosis: Status post left total hip arthroplasty Interval history: Patient reports no changes to concentration, mood, motor function. No acute events overnight. Pain controlled. Objective - Vital Signs Vital signs: Vital Signs Temp Pulse Resp BP Pulse Ox 04/21/18 10:49 98.5 F 73 16 114/76 96 04/21/18 06:41 98.3 F 79 16 111/67 98 04/21/18 00:40 98.5 F 88 15 109/64 98 04/20/18 18:55 98.2 F 98 15 102/58 98 04/20/18 15:59 98.5 F 88 16 118/56 95 04/20/18 12:30 98.8 F 98 16 133/68 96 Intake and Output 04/20/18 04/21/18 04/21/18 23:59 07:59 15:59 Intake Total 850 / 850 60 / 60 Output Total 2049 1000 / 1000 Balance -1200 / -1200 -1000 / -1000 60 / 60 Intake: Oral 850 / 850 60 / 60 Output: Urine 2049 1000 / 1000 Other: Meal Breakfast Percent of Meal Consumed 50% # Voids 1 Weight 66.5 kg Patient Weight 04/21/18 23:59 Weight 66.5 kg - General Appearance General appearance: Present: well-developed, well-nourished, appears started age EENT: Present: mucous membranes moist Neck: Present: no JVD, supple Respiratory: Present: clear Cardiology: Present: no murmurs, no rub, no gallops, no edema, regular rate, regular rhythm, normal S1, normal S2 Gastrointestinal: Present: no tenderness Integumentary: Present: warm and dry Neurologic: Present: no focal deficit, alert and oriented x3 Musculoskeletal: Present: no deformities, no erythema, no cyanosis, no clubbing Psychiatric: Present: mood/affect appropriate, cooperative - Lab 04/20/18 01:14 04/21/18 00:55 Most recent lab results Calcium 8.7 mg/dL (8.6-10.3) 04/21/18 00:55 Urine Sodium < 10.0 mEq/L 04/19/18 17:07 - VTE Documentation of Mechanical Device: Venous foot pump, device Consult Discharge Plan - Plan Referrals: Gabrielle Miller MD [Primary Care Provider] -
[2018-04-21 15:18] VITALS: BP 110/62
--- NOTE | 2018-04-21 16:50 | Discharge Summary ---
Orders not resulted at time of discharge: Pending orders 04/21/18 04:00 Osmolality,Urine [UCHEM] AM 0400 Potassium,Urine [UCHEM] AM 0400 Sodium, Urine [UCHEM] AM 0400 Date of Encounter: 04/21/18 Time of Encounter: 12:30 - Discharge Diagnosis (1) Arthritis of left hip Priority: Primary Status: Chronic (2) Status post total hip replacement, left Priority: Primary Status: Acute (3) Hypertension Priority: Secondary Status: Chronic Qualifiers: Hypertension type: unspecified Qualified Code(s): I10 - Essential (primary ) hypertension (4) Hyperlipidemia Priority: Secondary Status: Chronic Qualifiers: Hyperlipidemia type: unspecified Qualified Code(s): E78.5 - Hyperlipidemia , unspecified (5) Coronary artery disease Priority: Secondary Status: Chronic Qualifiers: Coronary Disease-Associated Artery/Lesion type: [place] artery [place] vs. transplanted heart: [place] heart Associated angina: angina presence unspecified Qualified Code(s): I25.10 - Atherosclerotic heart disease of [place] coronary artery without angina pectoris (6) Status post coronary artery bypass graft Priority: Secondary Status: Chronic (7) Mitral valve prolapse Priority: Secondary Status: Chronic (8) Acute blood loss anemia Priority: Secondary Status: Resolved (9) Hyponatremia Priority: Secondary Status: Acute - Hospital Course Hospital course: Ms. Tamayo is a 77 year old female Date of procedure: 04/16/18 Pre-op diagnosis: Left arthritis hip Post-op diagnosis: same Procedure: Left Total Hip Replacment robotic-assisted POD#5 s/p L THR robotic 04/16 Dr. Olivares Patient seen at bedside. Alert and oriented x 3 Labwork and medications reviewed. 04/20: H/H 8.6/23.5 - improved from 04/19 after 1 unit blood Hyponatremia persisting - first developed on 04/18 to 122. Decreased to 120 on 04/19. Improved to 122 then dropped again to 121 on 04/20. Nephrology consulted - they are further evaluating and treating. Improved today 04/21 to 129 after Tolvaptan administration. Nephrology okay with patient discharging to home. Vital signs reviewed. No calf tenderness. Neurovascularly intact b/l LE. Scant drainage to primary surgical incision. Pain control: Adequate with Oxycodone Participating in PT. Educated on use of incentive spirometer, ambulation, and hydration. Patient educated on post-operative restrictions and care. Addressed: 04/20: Family concerns: hyponatremia cause and treatment- discussed nephrology consultation as was previously discussed with both daughters on 04/19 by this provider as a possibility if sodium did not correct with blood transfusion. Discussed patient's vital signs - family was under impression patient should be on continuous monitoring. Explained at present this was not necessary as patient has remained stable. Discussed labwork that was ordered on 04/19 with results as well as indication for ordering. Discussed that while we are very pleased with her hip recovery she has developed this unexpected medical complication that arose that makes it unsafe for her to go home until corrected which is leading to a longer than anticipated hospital stay. Patient and family verbalized all questions and concerns addressed and expressed understanding and thanks. Nurse safety manager and nurse navigator were present during this lengthy discussion. Nurse safety manager aware of family's concerns and will continue to monitor. D/C plan: Home with home health once sodium corrected - today 04/21. - Time Spent with Patient Total time spent providing and/or coordinating discharge services: Less than 30 minutes - Discharge Medications Home Medications: Aspirin [Adult Aspirin] 81 mg PO DAILY 06/15/15 [History] Lisinopril [Zestril] 20 mg PO DAILY 06/15/15 [History] Ranitidine HCl [Heartburn Relief] 150 mg PO DAILY 06/15/15 [History] Aspirin Enteric Coated [Aspirin EC] 162 mg PO BID #20 tablet. 04/16/18 [Rx] Lutein 6 mg PO DAILY 04/16/18 [History] OxyCODONE Immed Rel [Roxicodone 5 MG] 5 mg PO Q4HR PRN 5 Days #20 tablet [Rx] Simvastatin [Zocor] 40 mg PO HS 04/16/18 [History] amLODIPine [Norvasc] 5 mg PO DAILY 04/16/18 [History] Cholecalciferol (D-3) [Vitamin D] 5,000 unit PO FR 04/17/18 [History] Loratadine [Allergy Relief] 10 mg PO DAILY 04/17/18 [History] Metoprolol Succinate [Toprol Xl] 12.5 mg PO DAILY 04/17/18 [History] Naproxen Sodium [Aleve] 220 mg PO Q12H PRN 04/17/18 [History] [place]-3/Dha/Epa/Fish Oil [Fish Oil 1,000 mg Softgel] 3 cap PO DAILY 04/17/18 [ History] Triamcinolone Acetonide [Nasacort] 1 - 2 spr NS DAILY PRN 04/17/18 [History] Allergies/Adverse Reactions: 3 Allergy/AdvReac Type Severity Reaction Status Date / Time Latex, Natural Rubber Allergy Hives Verified 04/17/18 13:11 Sulfa (Sulfonamide Allergy Hives Verified 04/17/18 13:11 Antibiotics) Date of admission: 04/16/18 15:48 Primary care physician: Gabrielle Miller MD Consults: 04/16/18 15:50 Consult to Nurse Navigator [CONS] Routine Comment: ortho navigator Consult to Occupational Therapy [CONS] Routine Comment: Evaluate, develop and implement POC Reason for Consult: total hip replacement Does patient have active BEDREST order?: No Is patient medically & hemodynamically stable?: Yes Consult to Physical Therapy [CONS] Routine Comment: Evaluate, develop and implement POC Reason for Consult: total hip replacement Does patient have active BEDREST order?: No Is patient medically & hemodynamically stable?: Yes Consult to House Nurse [CONS] Routine Reason for SW Consult: post op joint replacement RT Post Op Consult [CONS] Routine 04/16/18 15:51 Consult to Nutrition [CONS] Routine Comment: Consulting Provider: NUTRITION Reason for Dietary Consult: MST Score Consult to Pastoral Services [CONS] Routine Comment: 04/20/18 07:46 Consult to Nephrology [CONS] Routine Consulting Provider: Kidney María/BRIELLE/FLIP/VICKY Reason for Consult: Sodium level Time Notified: 07:40 Call Completed: Yes Anticipated date of discharge: 04/21/18 - VTE Documentation of Mechanical Device: Venous foot pump, device Labs on day of discharge: Labs from last 24 hours 04/21/18 04/20/18 00:55 17:59 Sodium 129 L 123 L Potassium 4.1 4.3 Chloride 96 L 97 L Carbon Dioxide 25 25 BUN 16 17 Creatinine 0.68 0.74 Est GFR ( Amer) > 60 > 60 Est GFR (Non-Af Amer) > 60 > 60 BUN/Creatinine Ratio 24 23 Glucose 110 H 137 H Calculated Osmolality 270 L 260 L Calcium 8.7 8.8 - Impressions ITS Impressions Hip X-Ray 04/16/18 10:42 IMPRESSION: Total hip arthropasty without acute hardware complication. D/ / Sam Bolden MD / Sam Bolden MD Interpreting Provider: Sam Bolden MD Chest X-Ray 04/19/18 18:32 IMPRESSION: No acute cardiopulmonary disease. D/ / Rickie Conti MD / Rickie Conti MD Interpreting Provider: Rickie Conti MD - Patient Status Disposition: Home Health Service Condition: Good Functional capacity at discharge: uses cane/walker Overall status at discharge: patient is progressing back to baseline - Discharge Instructions Instructions: Chronic Hypertension (DC), Anemia (GEN) Follow Up With: Gabrielle Miller MD [Primary Care Provider] - - Diet and Activity Activity: as per physical therapy Diet: regular diet
== END 2018-04-21 16:00 | disposition home health service (06) | DRG 470 ==
LOC: SAMDAY 10:38 → 3NENU 15:48
PROVIDERS: ADMIT Orthopaedic Surgery; ATTEND Orthopaedic Surgery